=== PATIENT | male | born 1970 | race African-American/Black ===

== ENCOUNTER 2017-02-02 12:35 | Emergency (ER) | payer SELFPAY ==
[~2017-02-02] VITALS: Ht 177.8 cm; Wt 78.0 kg
[~2017-02-02 12:35] MED LIST: AMOX500T PO; IBUP600T26 PO; PERM5LOT TOP; Z.0.NO CURRENT MEDS
[2017-02-02 12:37] VITALS: BP 163/75; PULSE 82; RESP 20; TEMP 98.8; O2SAT 100
--- NOTE | 2017-02-02 12:49 | PD ---
Physical Exam Date Seen by Provider: Feb 02, 2017 Time Seen by Provider: 12:47 Narrative 46 y/o with pain and swelling to left index finger. Pain 10/10. No fever. Vital signs reviewed. Patient stable. Awaiting Bed placement. Data Data Last Documented VS Vital Signs Date Time Temp Pulse Resp B/P Pulse Ox O2 Delivery O2 Flow Rate FiO2 02/02/17 12:37 98.8 82 20 163/75 100 MDM Medical Record Reviewed: Yes Supervised Visit with KIET: Yes Condition: Stable Meño Ballard Feb 02, 2017 12:48
[2017-02-02] MEDS ORDERED: BACT800T5 PO (13:54)
[2017-02-02] MEDS ORDERED: IBUP800T23 PO (13:54)
[2017-02-02] MEDS ORDERED: CEPH-460 PO (13:54)
--- NOTE | 2017-02-02 13:55 | PD ---
HPI Chief Complaint: Skin Problem Time Seen by Provider: 13:53 Travel History International Travel<30 days: No Contact w/Intl Traveler<30days: No Traveled to known affect area: No History of Present Illness HPI 46-year-old male presents emergency Department with complaint of pain and swelling to the distal aspect of his right index finger times one week with worsening last night and this morning. Denies fever, vomiting. Denies paresthesias, loss of sensation, decreased range of motion, decreased strength to the affected finger. Has no other medical complaints. No known allergies. Symptoms are mild in severity. Has not taken any medications or treatments to the face symptoms. No other modifying factors or associated signs and symptoms. PFSH Past Medical History Medical History: Denies Significant Hx ?: Not Past Surgical History Surgical History: No Previous Surgery Social History Alcohol Use: Yes (2-3 BEERS DAILY) Tobacco Use: Yes (1 PACK A DAY) Substance Use: Yes (MARIJUANA DAILY) Allergies-Medications (Allergen,Severity, Reaction): Coded Allergies: No Known Allergies (Verified , 02/02/17) Reported Meds & Prescriptions Reported Meds & Active Scripts Active Ibuprofen 800 Mg Tab 800 Mg PO Q6HR PRN Bactrim DS (Sulfamethoxazole-Trimethoprim) 800-160 Mg Tab 1 Tab PO BID 10 Days Keflex (Cephalexin) 500 Mg Cap 500 Mg PO Q6H 10 Days Amoxicillin 500 Mg Tab 500 Mg PO TID Ibuprofen 600 Mg Tab 600 Mg PO Q6 Permethrin 1 % Lot 5 % TOP ONCE Reported No Current Meds (Miscellaneous Medication) [facility] [place] Physical Exam Narrative GENERAL: Well-nourished, well-developed male patient, in no acute distress SKIN: Warm and dry. Right index finger with paronychia to the base of the nailbed; area is fluctuant and without pointing or drainage. Finger is without edema, erythema; with tenderness on palpation; sensory intact. Right upper extremity is supple and nontender 2+ radial pulses and sensory intact without erythema or edema. No lymphangitis noted. HEAD: Atraumatic. Normocephalic. EYES: Pupils equal and round. No scleral icterus. No injection or drainage. ENT: Mucosa pink and moist. Airway patent. NECK: Trachea midline. CARDIOVASCULAR: Regular rate. RESPIRATORY: No accessory muscle use. GASTROINTESTINAL: Flat. MUSCULOSKELETAL: No obvious deformities. No clubbing. No cyanosis. No edema. NEUROLOGICAL: Awake and alert. Oriented 3. No obvious cranial nerve deficits. Motor grossly within normal limits. Normal speech. PSYCHIATRIC: Appropriate mood and affect; insight and judgment normal. Data Data Last Documented VS Vital Signs Date Time Temp Pulse Resp B/P Pulse Ox O2 Delivery O2 Flow Rate FiO2 02/02/17 12:37 98.8 82 20 163/75 100 Orders Wound Culture And Gram Stain (02/02/17 13:52) Bupivacaine Pf 0.5% Inj (Marcaine Pf 0.5 (02/02/17 14:00) Lidocaine 1% Inj (50 Ml) (Xylocaine 1% I (02/02/17 14:00) MDM Medical Decision Making Medical Screen Exam Complete: Yes Emergency Medical Condition: Yes Medical Record Reviewed: Yes Differential Diagnosis Paronychia, felon, infected ingrown fingernail Narrative Course 46-year-old male with paronychia of right index finger. Patient is afebrile and nontoxic-appearing. Denies fever, vomiting. See my procedure note for incision and drainage of the paronychia. Wound culture pending. Keflex, Bactrim, ibuprofen prescribed for home. Instructed patient to follow up with primary care provider. Patient verbalizes understanding and agreement with treatment plan. Patient is medically cleared and stable for discharge. Discussed reasons to return to the emergency department. Patient agrees with treatment plan. The patients vital signs are stable and the patient is stable for outpatient follow-up and treatment. Patient discharged home, stable and in no acute distress. Procedures Procedure Narrative INCISION AND DRAINAGE OF ABSCESS: The right index finger was digitally blocked with 1% lidocaine and 0.5% bupivacaine. A number 11 scalpel was used to make a less than 0.5 cm incision across the area of the abscess. The abscess was drained, complex loculations were broken down, and irrigated with normal saline. Cultures were obtained. Sterile dressing applied. Diagnosis Primary Impression: Paronychia of finger of right hand Referrals: Primary Care Physician Patient Instructions: General Instructions, Paronychia (ED) Departure Forms: Tests/Procedures, Work Release Enter return to work date: Feb 03, 2017 Additional Instructions: Complete full course of antibiotics Warm compresses to the affected area Keep area clean and dry Ibuprofen or Tylenol as directed and as needed for pain and inflammation Follow-up with primary care provider Return to emergency department immediately with worsening of symptoms Med/Other Pt SpecificInfo: Prescription(s) given Scripts Ibuprofen 800 Mg [id number] Mg PO Q6HR PRN (PAIN) #30 TAB Ref 0 Prov:Elise Arora 02/02/17 Sulfamethoxazole-Trimethoprim (Bactrim DS)800-160 Mg Tab1 Tab PO BID 10 Days Ref 0 Prov:Elise rAora 02/02/17 Cephalexin (Keflex)500 Mg [id number] Mg PO Q6H 10 Days Ref 0 Prov:Elise Arora 02/02/17 Disposition: 01 DISCHARGE HOME Condition: Stable Elise Arora Feb 02, 2017 13:55
[2017-02-02] MEDS ORDERED: BUPIVACAINE HCL PF 0.5% 10 ML VIAL INFIL ONE (14:00)
[2017-02-02] MEDS ORDERED: LIDOCAINE HCL 1% 50 ML VIAL INFIL ONE (14:00)
== END 2017-02-02 14:55 | disposition home or self-care (01) ==
LOC: NEPK 12:35
DX: L03.011 Cellulitis of right finger (principal); A49.02 Methicillin resistant Staphylococcus aureus infection, unspecified site; F10.10 Alcohol abuse, uncomplicated; F17.290 Nicotine dependence, other tobacco product, uncomplicated; F12.10 Cannabis abuse, uncomplicated
CPT/HCPCS: 10060; 86403; 87070; 87077; 87186

== ENCOUNTER 2017-04-21 07:27 | Emergency (ER) | payer SELFPAY ==
[~2017-04-21] VITALS: Ht 177.8 cm; Wt 77.0 kg
[~2017-04-21 07:27] MED LIST changes: +BACT800T5 PO; +CEPH-460 PO; +IBUP800T23 PO
[2017-04-21 07:31] VITALS: BP 139/70; PULSE 108; RESP 15; TEMP 98.9; O2SAT 97
[2017-04-21 07:34] VITALS: PULSE 98
--- NOTE | 2017-04-21 07:44 | PD ---
HPI Chief Complaint: ENT Complaint Time Seen by Provider: 07:43 Travel History International Travel<30 days: No Contact w/Intl Traveler<30days: No Traveled to known affect area: No History of Present Illness HPI 46-year-old male presents to emergency Department with complaint of sore throat , worse on the left side, since yesterday. Reports subjective fevers. Reports ear pain and cough. Denies nasal congestion. Reports bilateral ear pain. Reports difficulty swallowing and painful swallowing. Reports lump in throat on the left side. Describes pain as burning. Pain 10/10. No one else with similar symptoms. Has taken Tylenol for symptom management and last took it last night. Pain is constant and aggravated with swallowing. Pain is decreased with Tylenol. No established primary care provider. No known allergies. Has no medical complaints. No other modifying factors or associated signs and symptoms. 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 No rash. HEAD: Atraumatic. Normocephalic. EYES: Pupils equal and round. No scleral icterus. No injection or drainage. ENT: Mucosa pink and dry. Left tonsil with erythema and edema; without exudate. No Uvular edema. Left palatal and tonsillar deviation. Airway patent. EARS: Bilateral pinnae and external canals appear within normal limits. Bilateral tympanic membranes without erythema, dullness or perforation.. NECK: Trachea midline. Left Anterior cervical lymphadenopathy and tenderness. CARDIOVASCULAR: Regular rate. RESPIRATORY: No accessory muscle use. GASTROINTESTINAL: Flat. MUSCULOSKELETAL: No obvious deformities. No clubbing. No cyanosis. No edema. NEUROLOGICAL: Awake and alert. Oriented 3. No obvious cranial nerve deficits. Motor grossly within normal limits. Normal speech. Moves all extremities. PSYCHIATRIC: Appropriate mood and affect; insight and judgment normal. Data Data Last Documented VS Vital Signs Date Time Temp Pulse Resp B/P (MAP) Pulse Ox O2 Delivery O2 Flow Rate FiO2 04/21/17 07:34 98 04/21/17 07:31 98.[address] Soft Tiss Neck W Iv Cont (04/21/17 ) Basic Metabolic Panel (Bmp) (04/21/17 07:47) Complete Blood Count With Diff (04/21/17 07:47) Prothrombin Time / Inr (Pt) (04/21/17 07:47) Act Partial Throm Time (Ptt) (04/21/17 07:47) Sodium Chlor 0.9% 1000 Ml Inj (Ns 1000 M (04/21/17 07:47) Sodium Chloride 0.9% Flush (Ns Flush) (04/21/17 08:00) Ketorolac Inj (Toradol Inj) (04/21/17 08:00) Group A Rapid Strep Screen (04/21/17 07:48) MDM Medical Decision Making Medical Screen Exam Complete: Yes Emergency Medical Condition: Yes Medical Record Reviewed: Yes Differential Diagnosis Pharyngitis, tonsillitis, peritonsillar abscess Narrative Course 46-year-old male physical exam consistent with possible left-sided peritonsillar abscess. Report given to Dr. Manjarrez and patient moved to medical bed for further treatment and evaluation. CBC, BMP, coags, CT soft tissue neck ordered. Normal saline bolus and Toradol ordered. Rapid strep ordered. See Dr. Manjarrez's note for final patient disposition. Scripts No Active Prescriptions or Reported Meds Elise Arora Apr 21, 2017 07:44
[2017-04-21] MEDS ORDERED: SODIUM CHLOR 0.9% 1000 ML INJ 1,000 ML IV SCH (07:47)
[2017-04-21] MEDS ORDERED: KETOROLAC TROMETHAMINE 30 MG/ML (IVP) VIAL IVP ONE (08:00)
[2017-04-21] MEDS ORDERED: SODIUM CHLORIDE 0.9% FLUSH 10 ML FLUSH IV FLUSH PRN (08:00)
--- NOTE | 2017-04-21 08:00 | PD ---
Physical Exam Date Seen by Provider: Apr 21, 2017 Narrative patient denies pmhx/pshx or allergy summary: 1 day h/o sore throat, worse on left side of throat/neck, generalized body ache, more painful when swallowing, no alleviating factor, and subj fever. patient is tolerating his own secretions and no change to his voice. GENERAL: SKIN: Warm and dry. HEAD: Atraumatic. Normocephalic. EYES: Pupils equal and round. No scleral icterus. No injection or drainage. ENT: No nasal bleeding or discharge. Mucous membranes pink and moist. bilateral erythematous edematous tonsils but more on left side, anterior cervical lad noted bilaterally NECK: Trachea midline. No JVD. CARDIOVASCULAR: Regular rate and rhythm. RESPIRATORY: No accessory muscle use. Clear to auscultation. Breath sounds equal bilaterally. GASTROINTESTINAL: Abdomen soft, non-tender, nondistended. Hepatic and splenic margins not palpable. MUSCULOSKELETAL: Extremities without clubbing, cyanosis, or edema. No obvious deformities. NEUROLOGICAL: Awake and alert. No obvious cranial nerve deficits. Motor grossly within normal limits. Five out of 5 muscle strength in the arms and legs. Normal speech. PSYCHIATRIC: Appropriate mood and affect; insight and judgment normal. Data Data Last Documented VS Vital Signs Date Time Temp Pulse Resp B/P (MAP) Pulse Ox O2 Delivery O2 Flow Rate FiO2 04/21/17 07:34 98 04/21/17 07:31 98.[address] Soft Tiss Neck W Iv Cont (04/21/17 ) Basic Metabolic Panel (Bmp) (04/21/17 07:47) Complete Blood Count With Diff (04/21/17 07:47) Prothrombin Time / Inr (Pt) (04/21/17 07:47) Act Partial Throm Time (Ptt) (04/21/17 07:47) Sodium Chlor 0.9% 1000 Ml Inj (Ns 1000 M (04/21/17 07:47) Sodium Chloride 0.9% Flush (Ns Flush) (04/21/17 08:00) Ketorolac Inj (Toradol Inj) (04/21/17 08:00) Group A Rapid Strep Screen (04/21/17 07:48) Iv Access Insert/Monitor (04/21/17 07:55) Ceftriaxone Inj (Rocephin Inj) (04/21/17 08:45) Iohexol 350 Inj (Omnipaque 350 Inj) (04/21/17 09:12) Labs Laboratory Tests Test 04/21/17 08:15 White Blood Count 10.7 TH/MM3 Red Blood Count 4.40 MIL/MM3 Hemoglobin 14.2 GM/DL Hematocrit 39.8 % Mean Corpuscular Volume 90.5 FL Mean Corpuscular Hemoglobin 32.3 PG Mean Corpuscular Hemoglobin Concent 35.7 % Red Cell Distribution Width 13.0 % Platelet Count 211 TH/MM3 Mean Platelet Volume 8.0 FL Neutrophils (%) (Auto) 84.6 % Lymphocytes (%) (Auto) 8.8 % Monocytes (%) (Auto) 6.2 % Eosinophils (%) (Auto) 0.0 % Basophils (%) (Auto) 0.4 % Neutrophils # (Auto) 9.0 TH/MM3 Lymphocytes # (Auto) 0.9 TH/MM3 Monocytes # (Auto) 0.7 TH/MM3 Eosinophils # (Auto) 0.0 TH/MM3 Basophils # (Auto) 0.0 TH/MM3 CBC Comment DIFF FINAL Differential Comment Prothrombin Time 11.7 SEC Prothromb Time International Ratio 1.1 RATIO Activated Partial Thromboplast Time 30.1 SEC Blood Urea Nitrogen 10 MG/DL Creatinine 1.23 MG/DL Random Glucose 90 MG/DL Calcium Level 9.6 MG/DL Sodium Level 137 MEQ/L Potassium Level 3.7 MEQ/L Chloride Level 104 MEQ/L Carbon Dioxide Level 24.2 MEQ/L Anion Gap 9 MEQ/L Estimat Glomerular Filtration Rate 76 ML/MIN [facility] Medical Record Reviewed: Yes Supervised Visit with KIET: Yes Differential Diagnosis strep pharyngitis v peritonsillar cellulitis v peritonsillar abscess Narrative Course to ensure no occult peritonsillar or retropharyngeal abscess present, ct of neck performed with contrast. which revealed pharyngitis without abscess... normal electrolytes, renal function, lft's , no anemia, no leukocytosis on cbc.. Diagnosis Primary Impression: Acute streptococcal pharyngitis Patient Instructions: General Instructions, Strep Throat (ED) Scripts Tramadol (Ultram) 50 Mg Tab 50 MG PO Q4H Y for PAIN, #12 TAB 0 Refills Prov: Felipe Manjarrez MD 04/21/17 Amoxicillin-Clavulanate (Augmentin) 875-125 Mg Tab 1 TAB PO BID for Infection, #20 TAB 0 Refills Prov: Felipe Manjarrez MD 04/21/17 Disposition: 01 DISCHARGE HOME Condition: Stable Felipe Manjarrez MD Apr 21, 2017 08:00
[2017-04-21] MEDS ORDERED: cefTRIAXone INJ 1,000 MG in SODIUM CHLORIDE 0.9% INJ 100 ML IV ONE (08:45)
[2017-04-21 08:46] LABS: BASOPHIL % 0.4 % (0.0-2.0); HEMATOCRIT 39.8 % (39.0-51.0); HEMO FLAGS DIFF FINAL; LYMPH % 8.8 % (9.0-44.0); LYMPHOCYTE # 0.9 TH/MM3 (1.0-4.8); MEAN CELL VOLUME 90.5 FL (80.0-100.0); MEAN CORPUSCULAR HEMOGLOBIN 32.3 PG (27.0-34.0); MEAN CORPUSCULAR HGB CONC 35.7 % (32.0-36.0); MONO % 6.2 % (0.0-8.0); NEUT % 84.6 % (16.0-70.0); PLATELET COUNT 211 TH/MM3 (150-450); WHITE BLOOD COUNT 10.7 TH/MM3 (4.0-11.0)
[2017-04-21 08:52] LABS: BICARBONATE 24.2 MEQ/L (21.0-32.0); POTASSIUM 3.7 MEQ/L (3.5-5.1)
[2017-04-21 08:53] LABS: APTT (PATIENT) 30.1 SEC (24.3-30.1); INTERNATIONAL NORMALIZED RATIO 1.1 RATIO; PROTHROMBIN TIME - PATIENT 11.7 SEC (9.8-11.6)
[2017-04-21] MEDS ORDERED: IOHEXOL 350 MG/ML 10 ML VIAL (for RAD DIAG) IVCONTRAST ONE (09:12)
--- NOTE | 2017-04-21 09:37 | RADRPT ---
EXAM DATE/TIME: 04/21/2017 09:01 [place] COMPARISON: No previous studies available for comparison. INDICATIONS : Sore throat with difficulty swallowing. IV CONTRAST: 68 cc Omnipaque 350 (iohexol) IV RADIATION DOSE: 15.06 CTDIvol (mGy) MEDICAL HISTORY : Hypertension. SURGICAL HISTORY : None. ENCOUNTER: Initial ACUITY: 1 day PAIN SCALE: 5/10 LOCATION: Left neck TECHNIQUE: Volumetric scanning of the neck was performed. Using automated exposure control and adjustment of th e mA and/or kV according to patient size, radiation dose was kept as low as reasonably achievable to obtain optimal diagnostic quality images. DICOM format image data is available electronically for r eview and comparison. FINDINGS: The examination is normal demonstrating asymmetric thickening of the lateral oral pharyngeal wall fro m the level of the soft palate down to the epiglottis. The lateral soft tissue thickening measures u p to 2.2 cm in width. There is mildly prominent enhancement in the lymphoid tissue about the base of the tongue bilaterally. Prevertebral soft tissues are normal in thickness. Bilateral enhancing mas ses/nodes adjacent to the anterior margin of the sternocleidomastoid muscle at the level of the angle of the mandible (best seen on image #55). Enhancement pattern is fairly uniform. The note on the r ight measures 1.6 cm and the left measures 1.8 cm. The parotid and submandibular glands are symmetric. The thyroid enhancement pattern and size is norm al. Supraclavicular regions are unremarkable. CONCLUSION: 1. Asymmetric thickening of the lateral nasopharyngeal oral pharyngeal wall on the left side. 2. Solitary bilateral prominent jugular lymph nodes, both measuring less than 2 cm in size. Edward Palencia MD on April 21, 2017 at 9:28 Board Certified Radiologist. This report was verified electronically.
[2017-04-21] MEDS ORDERED: ULTR50TA5 PO (09:58)
[2017-04-21] MEDS ORDERED: AUGM875T3 PO (09:58)
[2017-04-21 10:05] VITALS: BP 128/69; PULSE 99; RESP 20; O2SAT 99
== END 2017-04-21 10:18 | disposition home or self-care (01) ==
LOC: NEPK 07:27 → NEPE 10:18
DX: J02.0 Streptococcal pharyngitis (principal); F17.200 Nicotine dependence, unspecified, uncomplicated
CPT/HCPCS: 70491; 80048; 85025; 85610; 85730; 87880; 96361; 96365; 96375; 99285; J0696; J1885; J7030; Q9967